=== PATIENT | female | born 1990 | race Caucasian/White ===

== ENCOUNTER 2025-08-25 20:35 | Emergency (ER) | payer SELFPAY ==
[2025-08-25 20:36] VITALS: BP 141/94
[2025-08-25 20:58] LABS: Hematocrit 38.2 % (37.0-47.0); Hemoglobin 12.8 g/dL (12.0-16.0); Mean Corp Hgb Conc. 33.5 g/dL (33.0-37.0); Mean Corpuscular Volume 87.6 fL (81.0-99.0); Nucleated Red Blood Cells % 0 %; Platelet Count 246 10^3/uL (130-400); Red Cell Dist. Width 11.9 % (11.5-14.5)
[2025-08-25 21:07] LABS: HCG, Serum Qualitative Screen Negative
[2025-08-25 21:08] LABS: INR 0.99; PT 13.4 Sec (11.4-14.6)
[2025-08-25 21:09] LABS: APTT 29.1 Sec (23.4-35.0)
[2025-08-25 21:22] LABS: ALT (SGPT) 14 U/L (0-35); AST (SGOT) 16 U/L (14-36); Albumin 4.6 g/dl (3.5-5.0); Alkaline Phosphatase 46 U/L (38-126); Blood Urea Nitrogen 15 mg/dl (7-17); Calcium 9.7 mg/dl (8.4-10.2); Carbon Dioxide 24 mmol/L (22-30); Chloride 104 mmol/L (98-107); Glucose 117 mg/dl (70-99); Potassium 3.7 mmol/L (3.5-5.1); Sodium 136 mmol/L (135-145); Total Protein 7.8 g/dl (6.3-8.2); eGFR > 60.00
[2025-08-25 21:24] LABS: Troponin I < 0.012 ng/ml
[2025-08-26] VITALS: BP 113/79
[2025-08-26 00:03] VITALS: BMI 28.3
--- NOTE | 2025-08-26 00:31 | ED.GENMED ---
History of Present Illness
General
Chief Complaint: Extremity Pain (non-traumatic)
Source: patient
Exam Limitations: none
Time Seen by Provider: 08/26/25 00:23
Nursing documentation reviewed up to this point in time: agreed with
History of Present Illness
History of Present Illness:
The patient is a 35-year-old female with a history of two blood clotting disorders, specifically Factor V Leiden and MTHFR mutation, hyperlipidemia, Xander's thyroiditis, presenting with a chief complaint of chest pain radiating into the left arm
and shoulder. The pain onset was abrupt, waking her at 3 AM and preventing her from returning to sleep. The pain is described as radiating, similar to 'sciatica' but in the arm. She attempted various self-care measures including Ibuprofen, topical
creams, stretching, and massage, with no relief. The pain is persistent and not positional, occasionally causing difficulty with tasks such as lifting a coffee pot or her daughter due to weakness. The pain is constant, with exacerbations every few
minutes. No recent heavy lifting or trauma was reported. The patient mentioned that the pain does not become more severe with breathing or laughing. She denies leg pain, swelling, redness, or tenderness suggestive of deep vein thrombosis. She has
associated occasional shortness of breath.
Past History
Past History
ED Past Medical History: Hypothyroidism ([place]), Other (factor 5 def) and Other (Folic acid def)
Social History
Tobacco: Non-smoker
Alcohol: None
Drug: None
Personal:
Living: with family
Employment: Employed
Review of Systems
Review of Systems
All Other Systems: ROS reviewed and negative except as documented in HPI and ROS
Phy Exam
Physical Exam
Physical Exam:
General: Patient is well appearing and in no acute distress; non-toxic
Skin: Warm and dry, no rashes or lesions
Head: Normocephalic, atraumatic
Eyes: Sclera non-icteric. EOMs intact.
Cardiac: Regular rate and rhythm, no murmur. Pain is not reproducible on exam. No tenderness palpation throughout the fall. No pain with flexion extension, abduction and adduction of the left shoulder.
Peripheral Vascular: No lower extremity swelling or edema
Pulm: Normal respiratory effort, no wheezes, rales, rhonchi
Abdomen: No abdominal tenderness to palpation.
Neuro: CN II-XII intact, no focal neurologic deficits.
Psychiatric: Appropriate mood and affect.
Course
Orders/Labs/Results
Orders:
Orders
08/25/25 20:41
ECG [Electrocardiogram (*1)] Urgent
Reason for Study: Chest Pain
EKG- Treatment ONCE
Test Result ONCE
08/25/25 20:51
Complete Blood Count/With Diff Urgent
Comprehensive Metabolic Panel Urgent
HCG, Serum Qualitative Screen Urgent
PTT Urgent
Prothrombin Time Urgent
Troponin I Urgent
08/26/25 00:44
CT Chest PE Study Urgent
Comment:
Reason For Exam: sob, chest pain, hx of factor 5
08/26/25 04:06
Troponin I Urgent
Abnormal Lab Results
08/25/25
20:51
Absolute Monos (auto) 0.8 H 10^3/uL
(0.1-0.6)
Monocytes % 10.3 H %
(1.7-9.3)
Glucose 117 H mg/dl
(70-99)
08/25/25 20:51
08/25/25 20:51
Vital Signs
Initial and Last Documented VS:
Initial Vital Signs
Temp Pulse Resp BP Pulse Ox
97.5 F 104 18 141/94 95
08/25/25 20:36 08/25/25 20:36 08/25/25 20:36 08/25/25 20:36 08/25/25 20:36
Last Documented Vital Signs
Temp Pulse Resp BP Pulse Ox
97.5 F 78 14 115/78 97
08/25/25 20:36 08/26/25 02:15 08/26/25 02:15 08/26/25 02:00 08/26/25 02:15
MDM/Problems Addressed
Differential Diagnosis Includes:
ACS
PE
Pneumothorax
Muscle strain
Costochondritis
MDM/Problems Addressed:
35-year-old female presents here today with concerns of left arm pain and chest pain. She has dyspnea upon exertion as well. Does not recall any inciting injury. She has extensive history of blood clotting disorders. On exam she is
well-appearing in no acute distress. Her physical exam is unremarkable. She went for CAT scan which was negative for pulmonary embolism negative for aortic aneurysm or acute aortic dissection. I did want to offer patient Toradol and try to treat
her pain however patient is requesting to be discharged. CBC and CMP unremarkable. Discussed follow-up with primary care provider. Discussed tricked return precautions. Patient stable for discharge. Troponins x 2 undetectable, ECG nonischemic.
Chronic conditions affecting care:
hlp, xander's thyroiditis, factor v leiden
*Pulse Oximetry
SaO2: 98
Oxygen Mode of Delivery: Room air
Patient hypoxic: no
*EKG
Interpreted by ED Provider?: Yes
EKG Intrepretation Date: 08/26/25
Interpretation: normal
Comparison EKG: no changes
Heart Rate: 93
Rate: normal
Rhythm: sinus
[place]: normal axis
Interval: normal interval
*[employer]er Interpretation
Rate: normal
Interpretation: normal
Heart Rate: 75
Rhythm: sinus
*Critical Care Note
Total Time (30-74mins, 75-104mins- exclusive of procedures): Not Applicable
Data Reviewed
Review of Other/Old Records Reveals: Records (Reviewed ER/documentation from 04/27/2021 patient seen for urinary tract infection, reviewed discharge summary from 03/12/2021 patient seen for at 3 9 weeks breech position)
ED Attending Note
-
Portions of this chart may have been created with voice recognition software.� Occasional wrong word or��sound alike� substitutions may have occurred due to the inherent limitations of voice recognition software.
Discharge Plan
Departure
Patient Disposition: Home (Routine Discharge)
Date of Disposition: 08/26/25
Time of Disposition: 04:13
Patient with high blood pressure during this ER visit?: Yes
Condition: Good
Discharge Problem:
Chest pain, Left shoulder pain
Instructions: Muscle and Bone Pain (DC), BLOOD PRESSURE
Prescriptions:
No Action
acetaminophen 325 MG tablet
650 mg PO Q4HPRN PRN (Reason: mild pain) 0RF
ibuprofen 600 MG tablet
600 mg PO Q4HPRN PRN (Reason: cramps) 0RF
enoxaparin 40 MG/0.4 ML syringe
40 mg SC QPM 0RF
cephalexin 500 MG capsule
500 mg PO QID Qty: 40 0RF
Referrals:
BONIFACIO MORRISON, [Family Provider, Family Practice]
Activity Restrictions/Additional Instructions:
Please follow-up with your primary care provider.
PLEASE RETURN HERE IF YOU DEVELOP ANY WORSENING YOUR SYMPTOMS, REDNESS OR SWELLING IN EXTREMITIES, INABILITY TO BREATHE, WEAKNESS IN ONE-SIDED BODY VERSUS OTHER, UPPER BACK PAIN, OR ANY OTHER SIGNS OR SYMPTOMS RECENTLY.
Interventions
Interventions:
*Risk Screen - Suicide Last Done: 08/25/25 20:36
*General Assessment Last Done: 08/25/25 20:36
*Neglect/Abuse Screening Last Done: 08/26/25 04:21
*ED- Fall Risk Assessment Last Done: 08/26/25 00:03
*ED COVID-19 Vaccine History Last Done: 08/26/25 00:03
*ED Influenza Vaccine History Last Done: 08/26/25 00:03
*Nursing Disposition Last Done: 08/26/25 04:20
ED-Skin Assessment Last Done: 08/26/25 00:03
ED-Peripheral Vascular Assessment Last Done: 08/26/25 00:03
ED-Musculoskeletal Assessment Last Done: 08/26/25 00:03
Discharge Date and Time
Discharge Date/Time: 08/26/25 04:21
Print Language: KHMER
[2025-08-26 01:00] VITALS: BP 113/76
[2025-08-26 02:00] VITALS: BP 115/78
[2025-08-26 04:40] LABS: Troponin I < 0.012 ng/ml
== END 2025-08-26 04:21 | disposition home or self-care (01) ==
LOC: EMR 20:35
PROVIDERS: Physician Assistant; Student in an Organized Health Care Education/Training Program; EMERGENCY PHYSICIAN Student in an Organized Health Care Education/Training Program; FAMILY PHYSICIAN Family Medicine
DX: R07.9 Chest pain, unspecified (principal); M25.512 Pain in left shoulder; R03.0 Elevated blood-pressure reading, without diagnosis of hypertension; D68.51 Activated protein C resistance; E72.12 Methylenetetrahydrofolate reductase deficiency; E78.5 Hyperlipidemia, unspecified; E06.3 Autoimmune thyroiditis; Z79.01 Long term (current) use of anticoagulants
CPT/HCPCS: 99284; 71275; 80053; 84484; 84703; 85025; 85610; 85730; 93005; Q9967